=== PATIENT | male | born 1985 | race African-American/Black ===

== ENCOUNTER 2018-04-23 23:13 | Emergency (ER) | payer MEDICAID ==
[~2018-04-23] VITALS: Ht 170.2 cm; Wt 60.6 kg
[2018-04-24 03:04] VITALS: BP 122/70
== END 2018-04-24 03:06 | disposition home or self-care (01) ==
LOC: ED 23:59
DX: F10.120 Alcohol abuse with intoxication, uncomplicated (principal); F17.200 Nicotine dependence, unspecified, uncomplicated; Z79.899 Other long term (current) drug therapy
CPT/HCPCS: 36415; 80307; 99283

== ENCOUNTER 2019-09-16 08:20 | Inpatient (IN) | payer MEDICAID ==
[~2019-09-16] VITALS: Ht 175.3 cm; Wt 67.0 kg
[2019-09-16] MEDS ORDERED: SODIUM CHLORIDE 0.9% 1,000ML IVBOLUS ONE ×2 (09:00→10:30)
[2019-09-16 09:11] LABS: MEAN CORPUSCULAR HEMOGLOBIN 28.8 pg (27.5-34.5); MEAN CORPUSCULAR HGB CONC 32.9 g/dL (33.2-36.2); MEAN CORPUSCULAR VOLUME 87.5 fL (81-97); MEAN PLATELET VOLUME 7.7 fL (7.4-10.4); PLATELET COUNT 222 x10^3/uL (130-400); RED BLOOD COUNT 4.85 x10^6/uL (4.38-5.82); RED CELL DISTRIBUTION WIDTH 15.3 % (9.4-14.8)
[2019-09-16 09:24] LABS: ALBUMIN 3.1 g/dL (3.4-5.0); ANION GAP 12 mmol/L (5-15); CALCIUM 10.7 mg/dL (8.5-10.1); CHLORIDE 99 mmol/L (98-107)
[2019-09-16 09:30] LABS: MD YES
[2019-09-16 09:33] LABS: BAND#(MANUAL) 2.29 x10^3/uL; BANDS%(MANUAL) 16 % (0-7); LYMPH#(MANUAL) 1.29 x10^3/uL (1-3.4); LYMPHS% (MANUAL) 9 % (22-44); MONOS#(MANUAL) 1.72 x10^3/uL (0.3-2.7); MONOS% (MANUAL) 12 % (2-9); SEG#(MANUAL) 9.01 x10^3/uL (1.8-6.8); SEGS% (MANUAL) 63 % (42-75)
[2019-09-16 09:34] LABS: <PLATELET ESTIMATE> ADEQUATE; <PLT MORPHOLOGY> NORMAL PLT MORPH; ANISOCYTOSIS 1+; HYPOCHROMIA 1+
--- NOTE | 2019-09-16 09:48 | NUR ---
PT BIBA FROM [facility] FOR AMS SINCE THIS AM. PER EMS, PT WAS DIAGNOSED WITH UTI YESTERDAY AND STARTED ON ROCHEPHIN. PT WAS SUPPOSED TO START CIPRO TODAY. PT ARRIVES AxOX1 INTERMITTENTLY, MOSTLY ASLEEP BUT ARROUSABLE TO LOUD NOISE. PT HAS ASHLEY CATHETER IN PLACE WITH NO DRAINAGE PRESENT. LOWER ABD IS RIGID AND DISTENDED. IV ESTABLISHED EXECUTIVE MANAGER NS 1L NS ADMINISTERED. PT CONNECTED TO ALL MONITORS. VSS. MERVIN BRITT TO BS FOR ASSESSMENT. ORDERS RECEIVED. LABS AND BC X2 DRAWN AND PROCESSING. ASHLEY REMOVED AND NEW ASHLEY PLACED. 1500mL BROWN/GREEN/BLOOD TINGED/PURULENT DRAINAGE OUT INITIALLY. UA WALKED TO LAB. ASHLEY STILL DRAINING APPROPRIATELY. XR COMPLETE. AWAITING RESULTS. PT STATES NO PAIN AT THIS TIME. FULL LINEN CHANGE COMPLETED. NO NEEDS EXPRESSED. CALL LIGHT WITHIN REACH.
[2019-09-16 10:09] LABS: CULTURE INDICATED? YES; MICROSCOPIC INDICATED
[2019-09-16] MEDS ORDERED: SODIUM CHLORIDE 0.9% 1,000 ML IV SCH (10:23)
[2019-09-16] MEDS ORDERED: LABETALOL 5MG/ML, 20ML IVPush PRN (10:30)
[2019-09-16] MEDS ORDERED: SODIUM POLYSTYRENE SULFONATE ORAL SUSP PO ONE (10:30)
[2019-09-16] MEDS ORDERED: INSULIN REGULAR 100 UNITS/ML, 3ML VIAL IVPush ONE ×2 (10:30)
[2019-09-16] MEDS ORDERED: DEXTROSE 50%, 50ML VIAL IVPush ONE (10:30)
[2019-09-16] MEDS ORDERED: hydrALAzine 20 MG/ML, 1ML IVPush PRN (10:30)
[2019-09-16] MEDS ORDERED: ONDANSETRON 2MG/ML, 2ML IVPush PRN (10:30)
[2019-09-16] MEDS ORDERED: PROMETHAZINE 25 MG/ML, 1ML IM PRN (10:30)
[2019-09-16] MEDS ORDERED: DEXTROSE 50%, 50ML SYRINGE IVPush ONE (10:30)
[2019-09-16] MEDS ORDERED: CEFTRIAXONE PMX 1GM/50ML 50 ML IVPB ONE (10:30)
[2019-09-16] MEDS ORDERED: CALCIUM GLUCONATE 4.6 MEQ in SODIUM CHLORIDE 0.9% 50 ML IV ONE (10:30)
--- NOTE | 2019-09-16 10:30 | NUR ---
MULTIPLE MEDS REQUESTED FROM PHARM.
--- NOTE | 2019-09-16 10:38 | NUR ---
PT TO CT.
[2019-09-16] MEDS ORDERED: BACL20TA PO (10:57)
[2019-09-16] MEDS ORDERED: MIDO10TA PO ×2 (10:57)
[2019-09-16] MEDS ORDERED: BISA-49 PO (10:57)
[2019-09-16] MEDS ORDERED: BISA5TAB5 PO (10:57)
[2019-09-16] MEDS ORDERED: MELA1TAB22 PO (10:57)
[2019-09-16] MEDS ORDERED: GABA300C10 PO (10:57)
[2019-09-16] MEDS ORDERED: METH750T2 PO (10:57)
[2019-09-16] MEDS ORDERED: ONDA4TAB7 PO (10:57)
[2019-09-16] MEDS ORDERED: DOCU100C33 PO (10:57)
[2019-09-16] MEDS ORDERED: ACET325T26 PO (10:57)
[2019-09-16] MEDS ORDERED: ENOX80SY5 SQ (10:57)
[2019-09-16] MEDS ORDERED: BISA10SU4 PR (10:57)
[2019-09-16] MEDS ORDERED: OXYB5TAB10 PO (10:57)
[2019-09-16] MEDS ORDERED: LACT10SO28 PO (10:57)
[2019-09-16] MEDS ORDERED: HEPARIN 5,000 UNITS/ML, 1ML ONE (11:12)
[2019-09-16] MEDS ORDERED: CEFTRIAXONE PMX 1GM/50ML 50 ML ONE (11:12)
[2019-09-16] MEDS ORDERED: INSULIN SINGLE DOSE, ER ONE (11:17)
[2019-09-16] MEDS: HEPARIN 5,000 UNITS/ML, 1ML SQ SCH ×3 (11:44→22:29)
[2019-09-16 11:45] LABS: ALANINE AMINOTRANSFERASE 46 U/L (12-78); ALBUMIN 2.9 g/dL (3.4-5.0); ANION GAP 14 mmol/L (5-15); CALCIUM 10.4 mg/dL (8.5-10.1); CHLORIDE 102 mmol/L (98-107); CREATININE 7.59 mg/dL (0.7-1.3)
--- NOTE | 2019-09-16 12:00 | NUR ---
TECH TO BS TO ATTEMPT EKG X 15MINUTES. PT SPASTIC AND TOO ALTERED TO COOPERATE. UNABLE TO OBTAIN ACCURATE EKG.
[2019-09-16 12:12] LABS: ALKALINE PHOSPHATASE 108 U/L (45-117); BILIRUBIN,TOTAL 0.8 mg/dL (0.2-1.0); CREATINE KINASE, TOTAL 181 U/L (39-308); TOTAL PROTEIN 7.7 g/dL (6.4-8.2)
--- NOTE | 2019-09-16 12:38 | NUR ---
PHARM CALLED REGARDING ZOSYN. WILL SEND TO ED AT THIS TIME.
[2019-09-16] MEDS: PIPERACILLIN/TAZO/PMX 4.5GM 100 ML IV SCH ×3 (12:50→22:29)
[2019-09-16] MEDS: SODIUM CHLORIDE 0.9% 1,000 ML IV SCH ×6 (12:51→19:54)
--- NOTE | 2019-09-16 12:53 | NUR ---
PT RESTING IN ROOM WITH LIGHTS DIMMED AND EYES CLOSED. VSS. IVF INFUSING. ZOSYN RECEIVED FROM PHARM AND STARTED AT THIS TIME. NO NEEDS EXPRESSED. CALL LIGHT WITHIN REACH. AWAITING ROOM ASSIGNMENT
--- NOTE | 2019-09-16 14:11 | NUR ---
PT RESTING IN ROOM WITH EYES CLOSED AND LIGHTS DIMMED. VSS. 1825mL EMPTIED FROM ASHLEY CATHETER. NO NEEDS EXPRESSED. CALL LIGHT WITHIN REACH.
--- NOTE | 2019-09-16 15:06 | NUR ---
ABX COMPLETE, NS AT 500ML/HR INFUSING W/OUI DIFFICULTY URIMETER NEARLY FULL WITH CLOUDY URINE PATIENT TURNED IN BED (TO PATIENT RIGHT SIDE) FOR COMFORT/SKIN CARE
--- NOTE | 2019-09-16 16:06 | NUR ---
task rn: entered pts room, rn labor delivery in room noted pts iv pulled out. iv disconnected and primary rn notified. pt has other iv, no need for additional iv at this time. ivf running in other patent iv
--- NOTE | 2019-09-16 16:08 | NUR ---
PT RESTING IN ROOM. VSS. NO NEEDS EXPRESSED. CALL LIGHT WITHIN REACH. AWAITING FURTHER ROOM ASSIGNMENT.
[2019-09-16 16:26] LABS: ANION GAP 9 mmol/L (5-15); CHLORIDE 109 mmol/L (98-107); CREATININE 5.47 mg/dL (0.7-1.3)
--- NOTE | 2019-09-16 17:15 | NUR ---
PT RESTING IN ROOM WITH LIGHTS DIMMED. VSS. FULL LINEN CHANGE COMPLETED. MEDIUM, BROWN BM X1. 950mL CLOUDY URINE EMPTIED FROM ASHLEY. NO NEEDS EXPRESSED. CALL LIGHT WITHIN REACH. AWAITING ROOM ASSIGNMENT.
--- NOTE | 2019-09-16 18:49 | NUR ---
REPORT TO BRYANT TIERNEY. PT READY FOR TRANSPORT.
[2019-09-16 21:46] VITALS: BP 124/73
[2019-09-16 22:23] LABS: ANION GAP 7 mmol/L (5-15); CHLORIDE 113 mmol/L (98-107); CREATININE 3.67 mg/dL (0.7-1.3)
[2019-09-17 00:26] VITALS: BP 147/82
[2019-09-17] MEDS: SODIUM CHLORIDE 0.9% 1,000 ML IV SCH ×2 (02:42→08:50)
[2019-09-17] MEDS: PIPERACILLIN/TAZO/PMX 4.5GM 100 ML IV SCH (05:18)
[2019-09-17 06:11] LABS: MEAN CORPUSCULAR HEMOGLOBIN 28.8 pg (27.5-34.5); MEAN CORPUSCULAR HGB CONC 32.9 g/dL (33.2-36.2); MEAN CORPUSCULAR VOLUME 87.5 fL (81-97); MEAN PLATELET VOLUME 8.1 fL (7.4-10.4); PLATELET COUNT 216 x10^3/uL (130-400); RED BLOOD COUNT 4.26 x10^6/uL (4.38-5.82); RED CELL DISTRIBUTION WIDTH 15.3 % (9.4-14.8)
[2019-09-17 06:27] LABS: ALBUMIN 2.6 g/dL (3.4-5.0); ANION GAP 10 mmol/L (5-15); CALCIUM 10.2 mg/dL (8.5-10.1); CHLORIDE 114 mmol/L (98-107)
[2019-09-17 06:31] LABS: % IRON SATURATION 13 % (20-55); ALANINE AMINOTRANSFERASE 36 U/L (12-78); ALKALINE PHOSPHATASE 93 U/L (45-117); BILIRUBIN,TOTAL 0.5 mg/dL (0.2-1.0); CREATININE 2.34 mg/dL (0.7-1.3); IRON LEVEL 28 mcg/dL (65-175); TOTAL IRON BINDING CAPACITY 218 mcg/dL (250-450); TOTAL PROTEIN 6.7 g/dL (6.4-8.2)
[2019-09-17 06:48] LABS: MD YES
[2019-09-17 06:50] LABS: ANISOCYTOSIS 1+; BANDS%(MANUAL) 3 % (0-7); EOS#(MANUAL) 0.13 x10^3/uL (0.0-0.4); EOS% (MANUAL) 1 % (1-7); LYMPH#(MANUAL) 1.61 x10^3/uL (1-3.4); LYMPHS% (MANUAL) 12 % (22-44); MONOS#(MANUAL) 0.67 x10^3/uL (0.3-2.7); MONOS% (MANUAL) 5 % (2-9); SEG#(MANUAL) 10.59 x10^3/uL (1.8-6.8); SEGS% (MANUAL) 79 % (42-75)
[2019-09-17 06:51] LABS: <PLATELET ESTIMATE> ADEQUATE; <PLT MORPHOLOGY> NORMAL PLT MORPH
[2019-09-17] MEDS ORDERED: POLY17PO5 PO (07:20)
[2019-09-17] MEDS ORDERED: BACL-19 PO (07:20)
[2019-09-17] MEDS ORDERED: MULT-508 PO (07:20)
[2019-09-17 07:49] VITALS: BP 160/87
[2019-09-17] MEDS: HEPARIN 5,000 UNITS/ML, 1ML SQ SCH ×2 (08:17→17:16)
[2019-09-17 08:20] VITALS: BP 148/86
[2019-09-17] MEDS ORDERED: PHARMACY MAY ADJ FOR RENAL FX MC PRN (09:30)
[2019-09-17] MEDS ORDERED: VANCOMYCIN PER PHARMACY MC PRN (09:30)
[2019-09-17] MEDS: GABAPENTIN 300 MG CAPSULE PO SCH ×3 (10:18→20:57)
[2019-09-17] MEDS: DOCUSATE 100 MG CAPSULE PO SCH ×2 (10:18→20:57)
[2019-09-17] MEDS: BACLOFEN 10 MG TABLET PO SCH ×3 (10:18→20:57)
[2019-09-17] MEDS: OXYBUTYNIN CHLORIDE 5 MG TABLET PO SCH ×2 (10:19→20:57)
[2019-09-17] MEDS: BISACODYL 10 MG SUPP PR SCH (10:19)
[2019-09-17] MEDS: POLYETHYLENE GLYCOL 17 GM PACKET PO SCH (10:19)
[2019-09-17] MEDS: MULTIVITAMIN 1 TABLET PO SCH (10:19)
[2019-09-17] MEDS: LACTATED RINGERS 1,000 ML IV SCH (10:20)
[2019-09-17] MEDS ORDERED: PHARMACOKINETIC MONITORING MC PRN (11:00)
[2019-09-17] MEDS ORDERED: PHARMACOKINETIC CONSULTATION MC ONE (11:00)
[2019-09-17] MEDS ORDERED: VANCOMYCIN PMX 1GM/200ML 200 ML IVPB SCH (11:00)
[2019-09-17] MEDS: CEFEPIME 1 GM in DEXTROSE 5% 50 ML IV SCH ×2 (11:02→20:58)
[2019-09-17] MEDS: METHOCARBAMOL 750 MG TABLET PO SCH ×3 (11:33→20:57)
[2019-09-17 11:49] LABS: ANION GAP 11 mmol/L (5-15); CALCIUM 10.2 mg/dL (8.5-10.1); CHLORIDE 111 mmol/L (98-107); CREATININE 1.51 mg/dL (0.7-1.3)
[2019-09-17 12:05] VITALS: BP 138/84
[2019-09-17] MEDS: SODIUM BICARBONATE 650 MG TABLET PO SCH ×2 (12:20→20:57)
[2019-09-17 16:18] LABS: ANION GAP 8 mmol/L (5-15); CALCIUM 10.1 mg/dL (8.5-10.1); CHLORIDE 109 mmol/L (98-107); CREATININE 1.25 mg/dL (0.7-1.3)
[2019-09-17 19:23] VITALS: BP 147/82
[2019-09-18 00:53] VITALS: BP 165/86
[2019-09-18] MEDS: HEPARIN 5,000 UNITS/ML, 1ML SQ SCH ×3 (01:00→20:55)
[2019-09-18 05:04] LABS: BASOPHILS # (AUTO) 0.02 x10^3/uL (0-0.1); BASOPHILS % (AUTO) 0 % (0-1); EOSINOPHILS # (AUTO) 0.25 x10^3/uL (0-0.4); EOSINOPHILS % (AUTO) 2 % (1-7); LYMPHOCYTES # (AUTO) 2.38 x10^3/uL (1-3.4); LYMPHOCYTES % (AUTO) 21 % (22-44); MD NO; MEAN CORPUSCULAR HGB CONC 33.3 g/dL (33.2-36.2); MEAN CORPUSCULAR VOLUME 87.2 fL (81-97); MEAN PLATELET VOLUME 8.2 fL (7.4-10.4); MONOCYTES # (AUTO) 1.42 x10^3/uL (0.2-0.8); MONOCYTES % (AUTO) 13 % (2-9); NEUTROPHILS # (AUTO) 7.31 x10^3/uL (1.8-6.8); NEUTROPHILS % (AUTO) 64 % (42-75); PLATELET COUNT 222 x10^3/uL (130-400); RED BLOOD COUNT 4.26 x10^6/uL (4.38-5.82); RED CELL DISTRIBUTION WIDTH 14.9 % (9.4-14.8)
[2019-09-18] MEDS: LACTATED RINGERS 1,000 ML IV SCH (05:27)
[2019-09-18] MEDS: METHOCARBAMOL 750 MG TABLET PO SCH ×4 (05:28→20:53)
[2019-09-18 07:34] VITALS: BP 158/83
[2019-09-18] MEDS: BISACODYL 10 MG SUPP PR SCH (09:00)
[2019-09-18] MEDS: DOCUSATE 100 MG CAPSULE PO SCH ×2 (09:49→20:54)
[2019-09-18] MEDS: SODIUM BICARBONATE 650 MG TABLET PO SCH ×2 (09:50→20:53)
[2019-09-18] MEDS: POLYETHYLENE GLYCOL 17 GM PACKET PO SCH (09:50)
[2019-09-18] MEDS: BACLOFEN 10 MG TABLET PO SCH ×3 (09:50→20:54)
[2019-09-18] MEDS: AMLODIPINE 5 MG TABLET PO SCH (09:50)
[2019-09-18] MEDS: MULTIVITAMIN 1 TABLET PO SCH (09:50)
[2019-09-18] MEDS: OXYBUTYNIN CHLORIDE 5 MG TABLET PO SCH ×2 (09:50→20:54)
[2019-09-18] MEDS: GABAPENTIN 300 MG CAPSULE PO SCH ×3 (09:50→20:54)
[2019-09-18] MEDS: CEFEPIME 1 GM in DEXTROSE 5% 50 ML IV SCH ×2 (11:04→22:40)
[2019-09-18 12:24] VITALS: BP 144/87
[2019-09-18] MEDS: VANCOMYCIN PMX 1GM/200ML 200 ML IVPB SCH (12:51)
[2019-09-18 14:16] VITALS: BP 145/86
[2019-09-18 18:44] VITALS: BP 150/85
[2019-09-18] MEDS ORDERED: MELATONIN 3 MG TABLET PO PRN (22:30)
[2019-09-19 00:29] VITALS: BP 146/88
[2019-09-19] MEDS: METHOCARBAMOL 750 MG TABLET PO SCH ×4 (05:20→22:11)
[2019-09-19] MEDS: HEPARIN 5,000 UNITS/ML, 1ML SQ SCH ×3 (05:20→22:12)
[2019-09-19] MEDS: VANCOMYCIN PMX 1GM/200ML 200 ML IVPB SCH (05:21)
[2019-09-19 07:26] VITALS: BP 142/80
[2019-09-19 07:27] LABS: BASOPHILS # (AUTO) 0.07 x10^3/uL (0-0.1); BASOPHILS % (AUTO) 1 % (0-1); EOSINOPHILS # (AUTO) 0.43 x10^3/uL (0-0.4); EOSINOPHILS % (AUTO) 5 % (1-7); LYMPHOCYTES # (AUTO) 2.65 x10^3/uL (1-3.4); LYMPHOCYTES % (AUTO) 29 % (22-44); MD NO; MEAN CORPUSCULAR HGB CONC 33.5 g/dL (33.2-36.2); MEAN CORPUSCULAR VOLUME 86.5 fL (81-97); MEAN PLATELET VOLUME 7.6 fL (7.4-10.4); MONOCYTES # (AUTO) 0.94 x10^3/uL (0.2-0.8); MONOCYTES % (AUTO) 10 % (2-9); NEUTROPHILS # (AUTO) 5.18 x10^3/uL (1.8-6.8); NEUTROPHILS % (AUTO) 56 % (42-75); PLATELET COUNT 240 x10^3/uL (130-400); RED BLOOD COUNT 4.49 x10^6/uL (4.38-5.82); RED CELL DISTRIBUTION WIDTH 14.6 % (9.4-14.8)
[2019-09-19 07:33] LABS: ALANINE AMINOTRANSFERASE 24 U/L (12-78); ALBUMIN 2.5 g/dL (3.4-5.0); ANION GAP 5 mmol/L (5-15); CALCIUM 10.1 mg/dL (8.5-10.1); CHLORIDE 105 mmol/L (98-107); CREATININE 0.71 mg/dL (0.7-1.3)
[2019-09-19 07:35] LABS: ALKALINE PHOSPHATASE 75 U/L (45-117); BILIRUBIN,TOTAL 0.4 mg/dL (0.2-1.0); TOTAL PROTEIN 6.8 g/dL (6.4-8.2)
[2019-09-19 08:45] VITALS: BP 139/86
[2019-09-19] MEDS: SODIUM BICARBONATE 650 MG TABLET PO SCH ×2 (09:00→22:11)
[2019-09-19] MEDS: AMLODIPINE 5 MG TABLET PO SCH (10:05)
[2019-09-19] MEDS: MULTIVITAMIN 1 TABLET PO SCH (10:05)
[2019-09-19] MEDS: DOCUSATE 100 MG CAPSULE PO SCH ×2 (10:05→21:00)
[2019-09-19] MEDS: BISACODYL 10 MG SUPP PR SCH (10:05)
[2019-09-19] MEDS: POLYETHYLENE GLYCOL 17 GM PACKET PO SCH (10:05)
[2019-09-19] MEDS: OXYBUTYNIN CHLORIDE 5 MG TABLET PO SCH ×2 (10:06→22:11)
[2019-09-19] MEDS: BACLOFEN 10 MG TABLET PO SCH ×3 (10:06→22:11)
[2019-09-19] MEDS: GABAPENTIN 300 MG CAPSULE PO SCH ×3 (10:06→22:11)
[2019-09-19] MEDS: SULFAMETH./TRIMETHOPRIM DS 800MG/160MG TABLET PO SCH ×2 (10:25→22:11)
[2019-09-19 13:00] VITALS: BP 112/70
[2019-09-19] MEDS ORDERED: AMLO-150 PO (13:05)
[2019-09-19] MEDS ORDERED: Sulfameth./Trimethoprim Ds PO (13:05)
[2019-09-19 18:37] VITALS: BP 123/72
[2019-09-19 19:14] VITALS: BP 112/74
[2019-09-19 19:48] LABS: TROPONIN I < 0.015 ng/mL (0.000-0.045)
[2019-09-20 00:24] VITALS: BP 113/73
[2019-09-20] MEDS: HEPARIN 5,000 UNITS/ML, 1ML SQ SCH ×2 (05:23→13:00)
[2019-09-20] MEDS: METHOCARBAMOL 750 MG TABLET PO SCH ×3 (05:23→15:37)
[2019-09-20 08:00] VITALS: BP 106/64
[2019-09-20] MEDS: MULTIVITAMIN 1 TABLET PO SCH (08:49)
[2019-09-20] MEDS: BISACODYL 10 MG SUPP PR SCH (08:49)
[2019-09-20] MEDS: SULFAMETH./TRIMETHOPRIM DS 800MG/160MG TABLET PO SCH (08:49)
[2019-09-20] MEDS: POLYETHYLENE GLYCOL 17 GM PACKET PO SCH (08:49)
[2019-09-20] MEDS: DOCUSATE 100 MG CAPSULE PO SCH (08:49)
[2019-09-20] MEDS: BACLOFEN 10 MG TABLET PO SCH ×2 (08:50→15:37)
[2019-09-20] MEDS: OXYBUTYNIN CHLORIDE 5 MG TABLET PO SCH (08:50)
[2019-09-20] MEDS: SODIUM BICARBONATE 650 MG TABLET PO SCH (08:50)
[2019-09-20] MEDS: GABAPENTIN 300 MG CAPSULE PO SCH ×2 (08:50→15:37)
[2019-09-20] MEDS: AMLODIPINE 5 MG TABLET PO SCH (08:51)
[2019-09-20 13:17] VITALS: BP 95/60
== END 2019-09-20 17:02 | DRG 871 ==
LOC: ED 10:48 → EDIP 19:20 → 4EST 19:21 → 3N 09-18 13:41
PROVIDERS: ADMIT Internal Medicine; ATTEND Internal Medicine
PROC: 0T9B70Z Drainage of Bladder with Drainage Device, Via Natural or Artificial Opening (ICD-10-PCS; principal; 2019-09-16)
DX: A41.9 Sepsis, unspecified organism (principal); G93.41 Metabolic encephalopathy; E87.1 Hypo-osmolality and hyponatremia; N17.9 Acute kidney failure, unspecified; G82.20 Paraplegia, unspecified; N39.0 Urinary tract infection, site not specified; B95.62 Methicillin resistant Staphylococcus aureus infection as the cause of diseases classified elsewhere; E83.52 Hypercalcemia; E86.0 Dehydration; E86.1 Hypovolemia; E87.5 Hyperkalemia; E87.8 Other disorders of electrolyte and fluid balance, not elsewhere classified; F10.21 Alcohol dependence, in remission; Y90.9 Presence of alcohol in blood, level not specified; N13.9 Obstructive and reflux uropathy, unspecified; N31.9 Neuromuscular dysfunction of bladder, unspecified; R65.20 Severe sepsis without septic shock; Z74.01 Bed confinement status; Z79.4 Long term (current) use of insulin
CPT/HCPCS: 36415; 70450; 71045; 76770; 80048; 80053; 80202; 81001; 82040; 82306; 82330; 82550; 82607; 82728; 83540; 83550; 83605; 83735; 83970; 84100; 84145; 84443; 84484; 84550; 85025; 87040; 87077; 87086; 87186; 93005; 96365; 96366; 96368; 96375; G0378; J0610; J0692; J0696; J1644; J1815; J2543; J3370; J7030; J7120

== ENCOUNTER 2019-12-13 12:50 | Emergency (ER) | payer MEDICAID ==
[~2019-12-13] VITALS: Ht 172.7 cm; Wt 55.4 kg
[~2019-12-13 12:50] MED LIST: ACET325T26 PO; AMLO-150 PO; BACL-19 PO; BACL20TA PO; BISA-49 PO; BISA10SU4 PR; BISA5TAB5 PO; DOCU100C33 PO; ENOX80SY5 SQ; GABA300C10 PO; LACT10SO28 PO; MELA1TAB22 PO; METH750T2 PO; MIDO10TA PO; MULT-508 PO; ONDA4TAB7 PO; OXYB5TAB10 PO; POLY17PO5 PO; Sulfameth./Trimethoprim Ds PO
--- NOTE | 2019-12-13 13:05 | NUR ---
WOUNDS ON COCCYX WITH CLEAN DRY MEPILEX IN PLACE
--- NOTE | 2019-12-13 13:09 | NUR ---
TASK RN: FIRST CONTACT WITH PT. PT RESTING ON RIGHT LATERAL SIDE TALKING TO ED MD. KISER. NO NEEDS EXPRESSED AT THIS TIME. PT HAS UNLABORED RESPIRATIONS WITH EVEN CHEST RISE AND FALL. CALL LIGHT WITHIN REACH. BEDRAILS UP X 2.
[2019-12-13] MEDS ORDERED: HYDROmorphone 1 MG/ML, 1ML INJ ONE (13:24)
--- NOTE | 2019-12-13 13:27 | NUR ---
TASK RN: PROVIDED MEDICATION PER EMAR FOR 10/10 PAIN ON COCCYX PRIOR TO TRANSFERING ON [facility] FROM ED ROOM TO X RAY. PT PLACED ON 2 L NC OXYGEN PRIOR TO LEAVING ED ROOM TO X RAY.
[2019-12-13] MEDS ORDERED: HYDROmorphone 1 MG/ML, 1ML INJ IM PRN (13:30)
--- NOTE | 2019-12-13 15:05 | NUR ---
SOME IMPROVEMENT IN PAIN SINCE MEDICATED FOR SAME. PT ROTATED TO HIS LEFT SIDE. FOOT BOOTS REMAIN IN PLACE THAT PT HAD ON WHEN HE ARRIVED.
--- NOTE | 2019-12-13 16:50 | NUR ---
soap suds enema admiinistered. pt lying on side at this time with no immediate BM
[2019-12-13] MEDS ORDERED: KETOROLAC 30 MG/1 ML ONE (17:28)
--- NOTE | 2019-12-13 17:55 | NUR ---
LARGE AMOUNT OF LIQUID STOOL PASSED. PT CLEANED AND POSITIONED ON HIS LEFT SIDE
--- NOTE | 2019-12-13 18:39 | NUR ---
PT STATES HIS SISTER WILL BE AT HIS HOUSE AND RUBENSA BEING CONTACTED FOR RIDE HOME
[2019-12-13 19:00] VITALS: BP 136/64
--- NOTE | 2019-12-13 19:08 | NUR ---
HYDROGEL PLACED IN COCCYGEAL WOUNDS AND A MEPILEX PLACED. REPORT TO ESTEFANY HURTADO.
--- NOTE | 2019-12-13 20:02 | NUR ---
pt unable to sign dc papers, but verbalized understanding. Pt was educated on safe narcotic use. [facility] in room to transport pt home.
== END 2019-12-13 20:05 | disposition home or self-care (01) ==
LOC: ED 19:55
DX: L89.156 Pressure-induced deep tissue damage of sacral region (principal); L89.626 Pressure-induced deep tissue damage of left heel; L89.616 Pressure-induced deep tissue damage of right heel; K59.00 Constipation, unspecified; F17.200 Nicotine dependence, unspecified, uncomplicated
CPT/HCPCS: 72220; 74018; 96372; 99284; J1170